=== PATIENT | male | born 1995 | race Caucasian/White ===

== ENCOUNTER 2021-04-23 08:00 | Outpatient (CLI) | payer OTHER ==
--- NOTE | 2021-04-23 16:54 | XRAY Report ---
PROCEDURE: Forearm RT INDICATIONS: CONTUSION TO RIGHT FOREARM TECHNIQUE: 2 views of the forearm were acquired. COMPARISON: None FINDINGS: Bones: No fractures or dislocations. No suspicious bony lesions. Soft tissues: No suspicious soft tissue calcifications or masses. IMPRESSION: No fracture. No osseous lesion. If there are persistent symptoms or continued clinical concern for pa thology, then repeat plain film radiographs (7-10 days) or advanced imaging (CT, MR, bone scan) shoul d be considered for further evaluation. Reviewed by: Zarina Lopez MD, PhD on 04/23/2021 4:53 PM PST Approved by: Zarina Lopez MD, PhD on 04/23/2021 4:53 PM PST Station ID: [id number]
== END 2021-04-23 23:59 | disposition home or self-care (01) ==
LOC: DI.S 08:00
PROVIDERS: ATTEND Physician Assistant Medical
DX: S50.11XA Contusion of right forearm, initial encounter (principal)

== ENCOUNTER 2022-10-10 10:11 | Outpatient (CLI) | payer SELFPAY | END 2022-10-10 23:59 | disposition EMS.NT | LOC: EMS 10:11 | DX: T63.441A Toxic effect of venom of bees, accidental (unintentional), initial encounter (principal) ==